=== PATIENT | female | born 1995 | race Two or more races ===

== ENCOUNTER 2019-02-24 10:44 | Emergency (ER) | payer SELFPAY ==
[~2019-02-24] VITALS: Ht 165.1 cm; Wt 86.0 kg
[2019-02-24 11:45] LABS: BASOPHILS % 0.2 % (0.0-2.0); HEMATOCRIT. 37.8 % (36.0-48.0); HEMOGLOBIN. 12.9 g/dL (12.0-16.0); LYMPHOCYTES % 11.3 % (20.0-50.0); MEAN CORPUSCULAR HEMOGLOBIN 28.9 pg (28.0-32.0); MEAN CORPUSCULAR VOLUME 84.6 fL (81.0-99.0); MEAN PLATELET VOLUME 7.5 fl (7.4-10.4); MONOCYTES % 6.2 % (2.0-8.0); NEUTROPHILS % 82.3 % (40.0-76.0); PLATELET 328 x1000/uL (130-400); RED BLOOD CELL COUNT 4.46 mill/uL (4.2-5.4); RED CELL DISTRIBUTION WIDTH 14.8 % (11.6-14.6)
[2019-02-24 11:53] LABS: CHLORIDE 107 mEq/L (98-107)
[2019-02-24 12:01] LABS: ETHANOL BLOOD < 10 mg/dL
[2019-02-24 12:29] LABS: CLARITY URINE TURBID (CLEAR); COLOR URINE AMBER (YELLOW); KETONES URINE 2+ (NEGATIVE); LEUKOCYTE ESTERASE URINE 3+ (NEGATIVE); NITRITE URINE NEGATIVE (NEGATIVE); OCCULT BLOOD URINE 1+ (NEGATIVE); PH URINE 6.5 (4.5-8.0); PROTEIN URINE 2+ (NEGATIVE); UCG SCREEN NEGATIVE
[2019-02-24] MEDS ORDERED: CEFTRIAXONE 1 G PREMIX 50 ML IV ONE (13:00)
[2019-02-24] MEDS ORDERED: DIPHENHYDRAMINE 50MG/ML VIAL IM NR (13:08)
[2019-02-24 13:10] LABS: *COCAINE SCREEN URINE NEGATIVE (NEGATIVE)
[2019-02-24 13:11] LABS: *AMPHETAMINES SCREEN URINE NEGATIVE (NEGATIVE); *BARBITURATES SCREEN URINE NEGATIVE (NEGATIVE); CANNABINOID URINE SCREEN NEGATIVE (NEGATIVE); METHADONE URINE SCREEN NEGATIVE (NEGATIVE); OPIATES URINE SCREEN NEGATIVE (NEGATIVE); PHENCYCLIDINE URINE SCREEN NEGATIVE (NEGATIVE)
[2019-02-24] MEDS ORDERED: HALOPERIDOL LACTATE 5MG/ML VIAL IM NR (13:15)
[2019-02-24 13:31] LABS: *BENZODIAZEPINES SCREEN URINE PRESUMTIVE POSITIVE (NEGATIVE)
[2019-02-24] MEDS ORDERED: LORAZEPAM 2MG/ML CPJ IV ONE (14:15)
[2019-02-24 15:10] LABS: CHLORIDE 109 mEq/L (98-107)
[2019-02-24 17:12] VITALS: BP 124/78
== END 2019-02-24 17:13 | disposition home or self-care (01) ==
LOC: ER 10:44 → EDBD 10:44 → ER 17:13
DX: F32.9 Major depressive disorder, single episode, unspecified (principal); R40.4 Transient alteration of awareness; F23 Brief psychotic disorder; J45.909 Unspecified asthma, uncomplicated
CPT/HCPCS: 36415; 70450; 80053; 80305; 80320; 81003; 81025; 82962; 85025; 87086; 96365; 96372; 96375; 99284; J0696; J1200; J1630; J2060; Z7610; G0480

== ENCOUNTER 2019-02-25 12:48 | Emergency (ER) | payer SELFPAY ==
[~2019-02-25] VITALS: Ht 162.6 cm; Wt 85.0 kg
[2019-02-25 15:01] VITALS: BP 133/88
== END 2019-02-25 15:01 | disposition home or self-care (01) ==
LOC: ER 13:35
DX: F41.9 Anxiety disorder, unspecified (principal); R45.1 Restlessness and agitation; R03.0 Elevated blood-pressure reading, without diagnosis of hypertension
CPT/HCPCS: 99284

== ENCOUNTER 2019-02-26 03:12 | Emergency (ER) | payer SELFPAY ==
[~2019-02-26] VITALS: Ht 162.6 cm; Wt 65.0 kg
[2019-02-26 03:35] VITALS: BP 140/78
== END 2019-02-26 04:47 | disposition home or self-care (01) ==
LOC: ER 03:43
DX: F41.9 Anxiety disorder, unspecified (principal); R03.0 Elevated blood-pressure reading, without diagnosis of hypertension
CPT/HCPCS: 99283